=== PATIENT | female | born 1940 | race Caucasian/White ===

== ENCOUNTER 2017-08-21 09:34 | Emergency (ER) | payer MEDICARE, BC ==
[2017-08-21] MEDS ORDERED: methylPREDNISolone Sod Succ/PF 125 MG/2 ML VIAL ONE (10:18)
[2017-08-21] MEDS ORDERED: Ondansetron HCl/PF 4 MG/2 ML Vial ONE (10:18)
[2017-08-21] MEDS ORDERED: Sterile Water 10 ML ONE (10:18)
[2017-08-21] MEDS ORDERED: Morphine 10 MG/ML VIAL ONE ×2 (10:21→12:15)
--- NOTE | 2017-08-21 11:43 | RAD ---
SINGLE VIEW OF THE PELVIS: COMPARISON: None. HISTORY: Low back pain since David. FINDINGS: A single view of the pelvis shows no evidence of acute fracture or dislocation. No degenerative vik nges are seen.. No soft tissue swelling is seen. IMPRESSION: Unremarkable exam. POS: [facility]
--- NOTE | 2017-08-21 11:45 | RAD ---
THREE VIEWS OF TH ELUMBOSACRAL SPINE: COMPARISON: None. HISTORY: Low back pain since Wednesday. FINDINGS: Three views lumbosacral spine show normal height and alignment of the vertebral bodies and intervert ebral disks without fracture or subluxation. Moderate posterior facet arthrosis is seen in the lowe r lumbosacral spine. IMPRESSION: Moderate degenerative changes of the lumbar spine without acute osseous abnormality. POS: [facility]
[2017-08-21] MEDS ORDERED: Lidocaine 5% Patch TD SCH (12:00)
[2017-08-21] MEDS ORDERED: Lidocaine Patch Removal 1 EACH TOP SCH (23:59)
== END 2017-08-21 13:52 | disposition home or self-care (01) ==
LOC: ERS 09:34
DX: M54.5 Low back pain (principal); I10 Essential (primary) hypertension; Z79.899 Other long term (current) drug therapy
CPT/HCPCS: 72100; 72170; 96374; 96375; 96376; A4216; J2270; J2405; J2930

== ENCOUNTER 2017-10-13 08:14 | Outpatient (CLI) | payer MEDICARE, BC ==
[2017-10-13 11:18] LABS: #Eosinphils 0.1 thou/uL (0.0-0.7); #Lymphocytes 1.5 thou/uL (1.20-3.40); #Monocytes 0.7 thou/uL (0.11-0.59); #Neutrophils 4.5 thou/uL (1.40-6.50); %Basophils 0.3 % (0.0-1.0); %Eosinophils 0.9 % (0.0-10.0); %Monocytes 10.6 % (0.0-10.0); %Neutrophils 66.2 % (42.0-75.0); Hemoglobin 14.5 g/dL (12.0-16.0); Mean Corpuscular HGB CONC 33.9 g/dL (32.0-36.0); Mean Corpuscular Hemoglobin 33.1 pg (27.0-31.0); Mean Corpuscular Volume 97.7 fl (81.0-99.0); Mean Platelet Volume 7.4 fL (7.4-10.4); Platelet Count 275 thou/uL (130-400); RBC Distribution Width 11.8 % (11.5-14.5); Red Blood Cell (RBC) Count 4.38 mill/uL (4.20-5.40); White Blood Cell (WBC) Count 6.7 thou/uL (4.8-10.8)
[2017-10-13 11:25] LABS: Anion Gap 12 mmol/L (10-20); BUN (Urea Nitrogen) 11 mg/dL (9.8-20.1); Calc. Creatinine Clearance 0 mL/min (70-130); Calcium 10.7 mg/dL (7.8-10.44); Carbon Dioxide 28 mmol/L (23-31); Chloride 103 mmol/L (98-107); Estimated GFR-MDRD 64; Glucose 96 mg/dL (83-110); Potassium 3.6 mmol/L (3.5-5.1); Sodium 139 mmol/L (136-145)
[2017-10-13 11:41] LABS: PTT 27.2 SEC (22.9-36.1)
--- NOTE | 2017-10-21 19:31 | EKG ---
Test Reason : Blood Pressure : / mmHG Vent. Rate : 083 BPM Atrial Rate : 083 BPM P-R Int : 142 ms QRS Dur : 066 ms QT Int : 348 ms P-R-T Axes : 054 058 032 degrees QTc Int : 408 ms Sinus rhythm with marked sinus arrhythmia Otherwise normal ECG When compared with ECG of 31-MAY-2015 19:58, (Unconfirmed) No significant change was found Confirmed by EJ LUIS (2) on 10/21/2017 7:30:50 PM Referred By: DUDLEY Confirmed By:EJ LUIS
== END 2017-10-13 08:15 | disposition home or self-care (01) ==
LOC: LABBT 08:14
PROVIDERS: ATTEND Surgery
DX: Z01.818 Encounter for other preprocedural examination (principal); M54.16 Radiculopathy, lumbar region; M48.061 Spinal stenosis, lumbar region without neurogenic claudication
CPT/HCPCS: 80048; 85025; 85610; 85730; 93005; 93010

== ENCOUNTER 2017-10-19 09:29 | Day surgery (SDC) | payer MEDICARE, BC ==
[2017-10-13 08:32] VITALS: BMI 33.2
[2017-10-19] MEDS ORDERED: CEFAZOLIN/Water 2 GM/20 ML SYRINGE ONE (10:12)
[2017-10-19] MEDS ORDERED: Sodium Chloride 0.9% 10 ML ONE (12:09)
[2017-10-19] MEDS ORDERED: Thrombin 5000 UNITS/5 ML VIAL ONE (12:09)
[2017-10-19] MEDS ORDERED: Fentanyl 100 MCG/2 ML VIAL ONE ×4 (12:21→16:48)
[2017-10-19] MEDS ORDERED: Midazolam HCl 2 mg/2 ml Vial ONE (12:21)
[2017-10-19] MEDS ORDERED: Promethazine HCl 25 MG/ML VIAL IM PRN (15:19)
[2017-10-19] MEDS ORDERED: Acetaminophen/Codeine 30-300mg Tablet PO PRN (15:19)
[2017-10-19] MEDS ORDERED: Bisacodyl 10 MG SUPP PR PRN (15:19)
[2017-10-19] MEDS ORDERED: Morphine 4 MG/ML VIAL SLOW IVP PRN (15:19)
[2017-10-19] MEDS ORDERED: Acetaminophen 325 MG TAB PO PRN (15:19)
[2017-10-19] MEDS ORDERED: Mag-Al 1200 mg/1200 mg/30 ML UDCUP PO PRN (15:19)
[2017-10-19] MEDS ORDERED: Milk Of Magnesia 30 ML UDCUP PO PRN (15:19)
[2017-10-19] MEDS ORDERED: tiZANidine HCl 4 MG TAB PO PRN (15:19)
[2017-10-19] MEDS ORDERED: Fleet Enema 133 ML BOT PR PRN (15:19)
[2017-10-19] MEDS ORDERED: Ondansetron HCl/PF 4 MG/2 ML Vial IVP PRN (15:19)
[2017-10-19] MEDS ORDERED: Ondansetron HCl/PF 4 MG/2 ML Vial ONE (15:20)
[2017-10-19] MEDS ORDERED: Glycopyrrolate 0.2 MG/ML 5 ML SYRINGE ONE (15:20)
[2017-10-19] MEDS ORDERED: Dexamethasone 20 MG/5 ML VIAL ONE (15:20)
[2017-10-19] MEDS ORDERED: Esmolol 100 MG/10 ML VIAL ONE (15:20)
[2017-10-19] MEDS ORDERED: ePHEDrine/0.9% NaCl/PF SYRINGE 50 mg/10 ml ONE (15:20)
[2017-10-19] MEDS ORDERED: PROPOFOL 200 MG/20 ML VIAL ONE (15:20)
[2017-10-19] MEDS ORDERED: PHENYLEPHRINE-NS 100 MCG/ML 10 ML SYRINGE ONE (15:20)
[2017-10-19] MEDS ORDERED: Lidocaine 1% PF 5 ML VIAL ONE (15:20)
[2017-10-19] MEDS ORDERED: Nebivolol HCl 5 MG TAB PO PRN (15:22)
[2017-10-19] MEDS ORDERED: HYDROmorphone 2 MG/ML VIAL SLOW IVP PRN (15:26)
[2017-10-19] MEDS ORDERED: Morphine Sulfate 2 MG/ML SYRINGE SLOW IVP PRN (15:26)
[2017-10-19] MEDS ORDERED: Meperidine HCl/PF 25 MG/ML VIAL SLOW IVP PRN (15:26)
[2017-10-19] MEDS ORDERED: Promethazine HCl 25 MG/ML VIAL SLOW IVP PRN (15:26)
[2017-10-19] MEDS ORDERED: CEFAZOLIN/Water 2 GM/20 ML SYRINGE SLOW IVP SCH (18:00)
[2017-10-19] MEDS: Sodium Chloride 0.9% 1,000 ML IV SCH (20:00)
[2017-10-19] MEDS: HYDROcodone/Acetaminophen 7.5/325 mg Tablet PO PRN (21:04)
[2017-10-20] MEDS: HYDROcodone/Acetaminophen 7.5/325 mg Tablet PO PRN ×4 (02:00→18:22)
[2017-10-20] MEDS: Sodium Chloride 0.9% 1,000 ML IV SCH ×2 (05:02→18:26)
[2017-10-20] MEDS ORDERED: CEFAZOLIN/Water 2 GM/20 ML SYRINGE SLOW IVP SCH (06:00)
--- NOTE | 2017-10-20 09:15 | PRG ---
DATE OF SERVICE: 10/20/2017 Ms. Farmer is doing well with improvement in her leg pain compared to before surgery. She has good strength. She is mobilizing. She has had some urinary retention. The biggest issue at this point i s we need to work on placement as she lives alone, so I think it would be in the inpatient rehab and we will start to work toward that.
[2017-10-20] MEDS: Polyethylene Glycol 3350 17 GM Packet PO SCH (09:22)
[2017-10-20] MEDS: Hydrocerin (Eucerin) Cream 120 gm Jar TOP SCH (09:24)
--- NOTE | 2017-10-20 10:34 | OP ---
SURGEON: Reno Harp M.D. PLATFORM BUILDER: Flaco Franz PA-C. PREPROCEDURE DIAGNOSIS: Multilevel lumbar stenosis. POSTPROCEDURE DIAGNOSIS: Multilevel lumbar stenosis. PROCEDURE: L2-L3, L3-L4, L4-L5 laminectomies, partial facetectomies, and foraminotomies over the L2, L3, L4, L5 nerve roots bilaterally. DESCRIPTION OF PROCEDURE: After informed consent was obtained from the patient, the patient brought to OR 11. Proper patient pause and identification was carried out. The patient was then placed unde r excellent general endotracheal anesthesia and positioned prone on the operating room table, all syed ropriate points were padded. We identified the dorsal spines of L2, L3, L4, and L5 and linear anthony w as made over this region. This area was sterilely cleansed, prepared, and draped and proper patient pause and identification was carried out. The wound was then opened with a combination of sharp, mon opolar, and blunt dissection and the L2, L3, L4, L5 dorsal spines lamina were exposed. Localization film confirmed our area of interest. We then performed L2, L3, L4, L5 laminectomies, partial facetec tomies, and foraminotomies over the L2, L3, L4, L5 nerve roots. We had excellent decompression of th e common dural tube and the nerve roots. There was no spinal fluid leak. Hemostasis was maximized t hroughout. The wound was then closed in anatomic layers following the sprinkling of vancomycin powde r. The patient then emerged from anesthesia.
[2017-10-21] MEDS: HYDROcodone/Acetaminophen 7.5/325 mg Tablet PO PRN ×2 (04:39→09:47)
[2017-10-21] MEDS: Sodium Chloride 0.9% 1,000 ML IV SCH ×2 (09:41→21:11)
[2017-10-21] MEDS: Hydrocerin (Eucerin) Cream 120 gm Jar TOP SCH (09:47)
[2017-10-21] MEDS: Polyethylene Glycol 3350 17 GM Packet PO SCH (09:47)
--- NOTE | 2017-10-21 14:36 | PRG ---
DATE OF SERVICE: 10/21/2017 SUBJECTIVE: Ms. Farmer is postoperative day #2 from multilevel lumbar decompression. She is doing well with improvement in her leg pain compared preoperatively. She has good strength in lower extrem ity myotomes and is beginning to mobilize. She will be a good inpatient rehabilitation candidate in my opinion and we will move in that direction. Hopefully, she may be dismissed today.
[2017-10-21] MEDS: Acetaminophen 500 MG TAB PO PRN (21:18)
[2017-10-22] MEDS: traMADol HCl 50 MG TAB PO PRN ×3 (02:11→22:08)
[2017-10-22] MEDS: Polyethylene Glycol 3350 17 GM Packet PO SCH (08:41)
[2017-10-22] MEDS: Acetaminophen 500 MG TAB PO PRN ×2 (08:45→15:26)
[2017-10-22] MEDS: Hydrocerin (Eucerin) Cream 120 gm Jar TOP SCH (08:47)
--- NOTE | 2017-10-22 09:14 | PRG ---
DATE OF SERVICE: 10/22/2017 Ms. Farmer is now postoperative day #3, having undergone an L2-L5 laminectomy with Dr. Harp. The patient states she is feeling much better today. She is currently walking with a walker and is more upright and steady on her feet compared to even yesterday. She does note that her incision has been itching. I have suggested ice for this. Right now we are waiting on placement for the patient. Hop efully today she will be accepted into a alf facility versus inpatient rehab, whatever martha keane has been approved for. She is stable for discharge at this time as she has been voiding spontaneou sly, ambulating. Pain is controlled with oral medications and she is tolerating a solid diet. Donnie e call with any questions or changes in the patient's neurologic status. Otherwise, she is stable fo r discharge at any time.
[2017-10-22] MEDS: Sodium Chloride 0.9% 1,000 ML IV SCH (15:28)
[2017-10-23] MEDS: Sodium Chloride 0.9% 1,000 ML IV SCH ×2 (07:09→13:02)
--- NOTE | 2017-10-23 08:24 | PRG ---
DATE OF SERVICE: 10/23/2017 Ms. Farmer is a 77-year-old female who I saw in her room this morning. She is status post from a L2 -L5 laminectomies. She is currently waiting for rehab to be accepted for rehab. Rehab screening rory l hopefully be done today and consideration for rehab placement. She has good strength in her upper and lower extremities bilaterally. There are no paresthesias. She had no bowel or bladder incontine nce. Overnight, there have been no acute events. She has been slightly hypertensive at 148/66, slig htly tachycardic at 109. However, she is afebrile and her respiratory rate is 18. Her incision is c lean, dry, and intact and I encouraged her to get up and walk as much as possible. We will look to d ischarge her to rehab today. If there are any further questions, please feel free to consult Neurosurgery.
[2017-10-23] MEDS: Hydrocerin (Eucerin) Cream 120 gm Jar TOP SCH (08:55)
[2017-10-23] MEDS: Polyethylene Glycol 3350 17 GM Packet PO SCH (08:55)
--- NOTE | 2017-10-23 10:01 | PRG ---
DATE OF SERVICE: 10/23/2017 I saw Ms. Farmer in her hospital room this morning. She is awaiting a bed in inpatient rehab facili . She underwent decompressive laminectomy with Dr. Harp this week and notices already a signific ant difference in her lower extremities. She feels she is moving around better today than yesterday and even her back pain is improving. We are waiting for inpatient rehabilitation admission and if a bed is available today she can be discharged.
[2017-10-23 13:23] VITALS: BP 123/59; TEMP 99
--- NOTE | 2017-11-10 10:09 | DIS ---
DATE OF ADMISSION: 10/19/2017 DATE OF DISCHARGE: 10/23/2017 DISCHARGE DIAGNOSES: 1. Multilevel lumbar stenosis. 2. Low back pain with lumbar radiculopathy. HOSPITAL COURSE: Ms. Farmer was admitted on 10/19/2017 to undergo multilevel lumbar laminectomy wit Dr. Harp. The patient tolerated the procedure well and it was without complication. She was lat er sent to the pediatric floor to recover and her insurance required 3 overnight stays in order for er to be accepted into inpatient rehab facility at discharge. At time of discharge, the patient is c omplaining of some incisional back pain, but otherwise had improvement in her leg pain and stated domenico t she was walking better at discharge. She remained neurologically at baseline with good strength in the bilateral lower extremities, although was using a walker for gait stability. Appropriate outpat ient followup appointments were scheduled and patient education was provided. At the time of dischar ge, the patient was pleased with her outcome postoperatively and was doing well.
== END 2017-10-23 19:34 ==
LOC: SDC 09:29 → 3SE 15:19 → SDC 10-23 19:34
PROVIDERS: ATTEND Surgery
PROC: 00NY0ZZ Release Lumbar Spinal Cord, Open Approach (ICD-10-PCS; principal; 2017-10-19)
DX: M48.061 Spinal stenosis, lumbar region without neurogenic claudication (principal); M54.16 Radiculopathy, lumbar region; Z98.1 Arthrodesis status; Z91.040 Latex allergy status; Z91.048 Other nonmedicinal substance allergy status; Z88.8 Allergy status to other drugs, medicaments and biological substances; Z90.710 Acquired absence of both cervix and uterus; Z90.722 Acquired absence of ovaries, bilateral; Z98.890 Other specified postprocedural states
CPT/HCPCS: 63047; 63048 ×3; 76001; 97110; 97116 ×2; 97139 ×2; 97530 ×2; 97535; G8978; G8979; G8987; G8988; A4216; J1100; J2001; J2250; J2405; J2704; J3010; J3370; J3490

== ENCOUNTER 2018-01-25 12:05 | Emergency (ER) | payer MEDICARE, BC ==
[2018-01-25 13:01] LABS: #Basophils 0.1 thou/uL (0.0-0.2); #Eosinphils 0.1 thou/uL (0.0-0.7); #Lymphocytes 1.6 thou/uL (1.20-3.40); #Monocytes 0.7 thou/uL (0.11-0.59); #Neutrophils 4.5 thou/uL (1.40-6.50); %Basophils 0.8 % (0.0-1.0); %Eosinophils 0.9 % (0.0-10.0); %Lymphocytes 23.1 % (21.0-51.0); %Monocytes 9.7 % (0.0-10.0); %Neutrophils 65.4 % (42.0-75.0); Hemoglobin 14.9 g/dL (12.0-16.0); Mean Corpuscular HGB CONC 33.6 g/dL (32.0-36.0); Mean Corpuscular Hemoglobin 32.2 pg (27.0-31.0); Mean Corpuscular Volume 95.9 fl (81.0-99.0); Mean Platelet Volume 7.4 fL (7.4-10.4); Platelet Count 276 thou/uL (130-400); RBC Distribution Width 11.3 % (11.5-14.5); Red Blood Cell (RBC) Count 4.63 mill/uL (4.20-5.40); White Blood Cell (WBC) Count 6.9 thou/uL (4.8-10.8)
[2018-01-25 13:08] LABS: INR-International Normal Ratio 0.9; PTT 25.2 SEC (22.9-36.1); Prothrombin Time 12.7 SEC (12.0-14.7)
[2018-01-25 13:17] LABS: ALT (SGPT) 12 U/L (8-55); AST (SGOT) 16 U/L (5-34); Albumin 4.1 g/dL (3.4-4.8); Alkaline Phosphatase 97 U/L (40-150); Anion Gap 11 mmol/L (10-20); BUN (Urea Nitrogen) 21 mg/dL (9.8-20.1); Bilirubin, Total 0.4 mg/dL (0.2-1.2); Calc. Creatinine Clearance 0 mL/min (70-130); Calcium 10.4 mg/dL (7.8-10.44); Carbon Dioxide 27 mmol/L (23-31); Chloride 104 mmol/L (98-107); Estimated GFR-MDRD 61; Globulin 2.7 g/dL (2.4-3.5); Glucose 93 mg/dL (83-110); Potassium 4.4 mmol/L (3.5-5.1); Protein, Total 6.8 g/dL (6.0-8.3); Sodium 138 mmol/L (136-145)
== END 2018-01-25 17:06 | disposition home or self-care (01) ==
LOC: ERS 12:05
DX: K64.4 Residual hemorrhoidal skin tags (principal); Z79.899 Other long term (current) drug therapy; Z79.891 Long term (current) use of opiate analgesic
CPT/HCPCS: 36415; 80053; 82274; 85025; 85610; 85730; 86850; 86900; 86901; 99284

== ENCOUNTER 2018-02-02 09:45 | Outpatient (CLI) | payer MEDICARE, BC ==
[2018-02-02] MEDS ORDERED: ISOVUE-370 76%-LOCM 1 ML ONE (15:03)
== END 2018-02-02 09:46 | disposition home or self-care (01) ==
LOC: BICCT 09:45
PROVIDERS: ATTEND Internal Medicine Gastroenterology
DX: E83.119 Hemochromatosis, unspecified (principal); R93.3 Abnormal findings on diagnostic imaging of other parts of digestive tract; K92.2 Gastrointestinal hemorrhage, unspecified
CPT/HCPCS: 74177

== ENCOUNTER 2018-07-26 11:30 | Observation (INO) | payer MEDICARE, BC ==
[2018-07-26 12:22] LABS: #Basophils 0.1 thou/uL (0.0-0.2); #Eosinphils 0.1 thou/uL (0.0-0.7); #Lymphocytes 1.2 thou/uL (1.20-3.40); #Monocytes 0.5 thou/uL (0.11-0.59); #Neutrophils 6.1 thou/uL (1.40-6.50); %Basophils 0.7 % (0.0-1.0); %Eosinophils 1.1 % (0.0-10.0); %Lymphocytes 14.7 % (21.0-51.0); %Neutrophils 77.5 % (42.0-75.0); Hemoglobin 12.4 g/dL (12.0-16.0); Mean Corpuscular HGB CONC 32.1 g/dL (32.0-36.0); Mean Corpuscular Hemoglobin 31.7 pg (27.0-31.0); Mean Corpuscular Volume 98.8 fL (78.0-98.0); Mean Platelet Volume 7.7 fL (7.4-10.4); Platelet Count 188 thou/uL (130-400); RBC Distribution Width 12.2 % (11.5-14.5); Red Blood Cell (RBC) Count 3.91 mill/uL (4.20-5.40); White Blood Cell (WBC) Count 7.8 thou/uL (4.8-10.8)
[2018-07-26 12:47] LABS: ALT (SGPT) 10 U/L (8-55); AST (SGOT) 14 U/L (5-34); Albumin 3.3 g/dL (3.4-4.8); Alkaline Phosphatase 73 U/L (40-150); Anion Gap 13 mmol/L (10-20); BUN (Urea Nitrogen) 14 mg/dL (9.8-20.1); Bilirubin, Total 0.4 mg/dL (0.2-1.2); Calc. Creatinine Clearance 0 mL/min (70-130); Calcium 8.8 mg/dL (7.8-10.44); Carbon Dioxide 21 mmol/L (23-31); Chloride 107 mmol/L (98-107); Estimated GFR-MDRD 47; Globulin 2.3 g/dL (2.4-3.5); Glucose 208 mg/dL (83-110); Potassium 3.9 mmol/L (3.5-5.1); Protein, Total 5.6 g/dL (6.0-8.3); Sodium 137 mmol/L (136-145)
--- NOTE | 2018-07-26 12:47 | RAD ---
ONE VIEW CHEST: Comparison: 05-31-15 History: Syncope. FINDINGS: Normal cardiac silhouette. The pulmonary vessels and hilum are normal. Costophrenic angles are clear. Elevation of the right hemidiaphragm. No consolidation or mass. No pneumothorax or osseous abnormali ty. IMPRESSION: Elevation right hemidiaphragm which may be due to atelectasis. Elevation of the right hemidiaphragm c orresponds to CT from January 2018. If there is concern for diaphragmatic paralysis, consider non-emerg ent Sniff Test. POS: [facility]
[2018-07-26 12:50] LABS: CKMB 0.9 ng/mL (0-6.6); Troponin I Less than 0.010 ng/mL (< 0.028)
[2018-07-26 13:56] LABS: Hemoglobin A1c 5.3 % (4.0-6.0)
[2018-07-26] MEDS ORDERED: Acetaminophen 325 MG TAB PO PRN (14:25)
[2018-07-26] MEDS ORDERED: Ondansetron ODT 4 MG TAB PO PRN (14:25)
[2018-07-26] MEDS ORDERED: Calcium Carbonate 500 MG ChewTAB PO PRN (14:25)
[2018-07-26] MEDS ORDERED: Nitroglycerin 0.4 MG TAB (25 Tab Bottle) PO PRN (14:25)
[2018-07-26] MEDS ORDERED: Ondansetron HCl/PF 4 MG/2 ML Vial IVP PRN (14:25)
--- NOTE | 2018-07-26 14:37 | HP ---
DATE OF ADMISSION: 07/26/2018 PRIMARY CARE PHYSICIAN: Mary Vargas M.D. CHIEF COMPLAINT: Near syncopal episode. HISTORY OF PRESENT ILLNESS: The patient is an 78-year-old white female with hemochromatosis requirin g phlebotomy, presented to the emergency room with a near syncopal episode. The patient underwent phlebotomy this morning. After that, she was at [facility]. While she was eating, s he had a near syncopal episode. She denies any loss of consciousness. She was pale and diaphoretic at that time. She denies any chest pain, palpitations, double vision, blurring of vision, facial asy mmetry or weakness, numbness of any of her extremities. No seizures reported. No complete loss of c onsciousness. Her blood pressure per EMS was 81/40. She was unable to lift her head from the table per EMS. She received IV fluids by the EMS. Her blood pressure in the emergency room was 100/56 wit h temperature 98.1, respirations 12, pulse rate of 87, O2 saturation of 100% on room air. Her EKG sh owed sinus rhythm without significant ST-T wave changes. Her troponin was negative. Her creatinine was slightly elevated at 1.11 from 0.98. PAST MEDICAL HISTORY: 1. History of hypertension. She only takes Bystolic on an as needed basis. 2. Hemochromatosis followed by Dr. Long. She was scheduled for 3 phlebotomy sessions. Today was he r second one. 3. Chronic constipation. 4. Gastroesophageal reflux disease. 5. Degenerative joint disease. 6. History of gastrointestinal bleeding. 7. Benign essential tremors. 8. History of breast cancer. 9. Atopic dermatitis. 10. Recurrent gastrointestinal bleed. PAST SURGICAL HISTORY: 1. Right lumpectomy. 2. Hysterectomy. 3. Colonoscopy in 2011 that was normal. 4. Left ear surgery. 5. Stress test and cardiac catheterization in 2011. Report unavailable. 6. I and D of her skin cyst on the back in 2012. ALLERGIES: The patient is allergic to LATEX, RAMIPRIL and ADHESIVES. CURRENT HOME MEDICATIONS: The patient takes Protonix 40 mg daily, Benadryl as needed, MiraLax daily, Bystolic 5 mg only if her blood pressure is more than systolic 180s. SOCIAL HISTORY: The patient currently lives at home. Denies current use of smoking, alcohol or drug use. She is active at the local [facility]. She is . She makes her own decision with th e help of her family. FAMILY HISTORY: Father with lung cancer. Mother had heart problems. Heart disease runs in her fami ly. REVIEW OF SYSTEMS: The following complete review of systems was negative, unless otherwise mentioned in the HPI or below: Constitutional: Weight loss or gain, ability to conduct usual activities. Sk in: Rash, itching. Eyes: Double vision, pain. ENT/Mouth: Nose bleeding, neck stiffness, pain, te nderness. Cardiovascular: Palpitations, dyspnea on exertion, orthopnea. Respiratory: Shortness of breath, wheezing, cough, hemoptysis, fever or night sweats. Gastrointestinal: Poor appetite, abdom inal pain, heartburn, nausea, vomiting, constipation, or diarrhea. Genitourinary: Urgency, frequenc y, dysuria, nocturia. Musculoskeletal: Pain, swelling. Neurologic/Psychiatric: Anxiety, depressio n. Allergy/Immunologic: Skin rash, bleeding tendency. PHYSICAL EXAMINATION: VITAL SIGNS: As discussed above. GENERAL: An 78-year-old female, in no apparent distress, feels better with IV fluids. HEENT: Head atraumatic, normocephalic. Sclerae are anicteric. Moist mucous membrane. No oral lesi on. NECK: Supple, no JVD, no carotid bruit. LUNGS: Clear to auscultation bilaterally. HEART: S1, S2 present. Regular rate and rhythm. No significant murmur, heaves or pulsation noted. ABDOMEN: Soft, nontender. Bowel sounds present. EXTREMITIES: No edema or calf tenderness. NEUROLOGIC: Grossly nonfocal. Moves all four extremities. PSYCHIATRY: Alert, awake, oriented x3. SKIN: Warm and dry. LYMPH NODES: No palpable lymph nodes in the neck. PERIPHERAL VASCULAR: Radial pulses palpable bilaterally. MUSCULOSKELETAL: No joint swelling or tenderness. LABORATORY FINDINGS: Creatinine 1.11 with BUN 14. Hemoglobin A1c 5.3 with glucose of 208, albumin 3 .3. LFTs in normal range. Sodium 137, potassium 3.9. WBC 7.8 with hemoglobin 12.4, hematocrit 38.6, platelets of 188,000. Troponin was negative. JMAGING: EKG by my review as discussed above. Chest x-ray by my review was negative for infiltrate. It showed chronic elevation of the right diaphragm. IMPRESSION: 1. Near syncopal episode, probably vasovagal versus dehydration. 2. Chronic kidney disease stage 3 with slight worsening of the creatinine. 3. Hyperglycemia secondary to stress. Hemoglobin A1c is normal. 4. Mild protein calorie malnutrition. 5. Chronic hemochromatosis on phlebotomy. 6. Gastroesophageal reflux disease. 7. Hypertension on p.r.n. Bystolic. 8. History of recurrent gastrointestinal bleed. PLAN: The patient will be monitored on the telemetry unit. We will obtain serial troponins. We rory l repeat orthostatic vitals in a.m. We will resume her home medications. We will continue IV fluids . We will try to obtain echocardiogram and catheterization report from 2011. Plan of care was discussed with the patient in detail. She stated understanding.
[2018-07-26 14:49] LABS: Phosphorus 3.1 mg/dL (2.3-4.7)
[2018-07-26 15:44] LABS: Troponin I Less than 0.010 ng/mL (< 0.028)
[2018-07-26] MEDS ORDERED: Prevnar 13-Val Conj/PF 0.5 ML SYRINGE IM ONE (15:45)
[2018-07-26] MEDS: Sodium Chloride 0.9% 1,000 ML IV SCH ×2 (15:46→23:50)
[2018-07-26 19:41] LABS: Troponin I Less than 0.010 ng/mL (< 0.028)
[2018-07-26 20:34] LABS: Bilirubin Negative (Negative); Blood, Urine Negative (Negative); Clarity CLEAR (Clear); Glucose, Urine (Dipstick) 100 mg/dL (Negative); Leukocyte Negative (Negative); Nitrite Negative (Negative); Protein, Urine (Dipstick) Negative (Neg-Trace); Specific Gravity, Urine 1.009 (1.002-1.036); Urobilinogen 0.2 mg/dL (0.2-1.0); pH, Urine 6.5 (5.0-9.0)
[2018-07-26 20:37] LABS: Bacteria/HPF None Seen HPF (None Seen); Hyaline Casts/LPF 0-3 HYALINE CAST LPF (0-3 Hyaline); Pathc Cast-AUWi Flag 0.29 (0-2.49); RBC/HPF 0-3 HPF (0-3); Squamous Epithelial 0-3 HPF (0-3); WBC/HPF 0-3 HPF (0-3)
[2018-07-26 20:38] LABS: Renal Epithelial None Seen HPF (0-3); Transitional Epithelial NONE SEEN HPF (0-3)
[2018-07-27 05:01] LABS: Anion Gap 9 mmol/L (10-20); BUN (Urea Nitrogen) 11 mg/dL (9.8-20.1); Calc. Creatinine Clearance 67 mL/min (70-130); Calcium 8.7 mg/dL (7.8-10.44); Carbon Dioxide 24 mmol/L (23-31); Chloride 112 mmol/L (98-107); Estimated GFR-MDRD 69; Glucose 103 mg/dL (83-110); Potassium 3.8 mmol/L (3.5-5.1); Sodium 141 mmol/L (136-145)
[2018-07-27] MEDS: Sodium Chloride 0.9% 1,000 ML IV SCH (10:35)
[2018-07-27 10:50] VITALS: BMI 33.8
[2018-07-27 12:46] VITALS: BP 144/75; TEMP 98.8
--- NOTE | 2018-07-28 10:31 | DIS ---
DATE OF DISCHARGE: 07/27/2018 DISCHARGE DISPOSITION: Home. FOLLOWUP: Follow up with primary care physician Mary Vargas in 1 week. Fall precaution was emphasized. The patient was advised to monitor her blood pressure on a daily basis and to maintain a log. The patient was seen and examined on the day of discharge. Denies any new complaints. No chest pain , shortness of breath, palpitations reported. BRIEF HOSPITAL COURSE: The patient is an 78-year-old white female with hemochromatosis requiring phl ebotomy presented to the emergency room with a near syncopal episode. Please refer to the history an d physical for further details. The patient was admitted to the hospital with a diagnosis of near syncopal episode, probably vasovaga l following phlebotomy session. She improved with IV fluids. Orthostatic vital this morning remain negative. Creatinine on the day of discharge is 0.8 from 1.11. Troponins remain negative. Telemetr y monitoring did not reveal significant arrhythmias. All the electrolytes including potassium, magne sium, and phosphorus remained normal. Plan of care was discussed with the patient in detail. She stated understanding. FINAL DIAGNOSES: 1. Near syncopal episode, probably vasovagal versus secondary to dehydration. 2. Acute kidney injury on chronic kidney disease stage 3, improved. 3. Mild protein calorie malnutrition. 4. Chronic hemochromatosis on phlebotomy per Gastroenterology, Dr. Long. 5. Gastroesophageal reflux disease. 6. Hypertension on p.r.n. Bystolic. 7. Hyperglycemia on admission, probably stress induced. Hemoglobin A1c was 5.3. 8. History of recurrent gastrointestinal bleed. Plan of care was discussed with the patient in detail. She stated understanding.
== END 2018-07-27 13:23 | disposition home or self-care (01) ==
LOC: ERS 11:30 → 2NO 14:55
PROVIDERS: ADMIT Internal Medicine; ATTEND Internal Medicine
DX: R55 Syncope and collapse (principal); E83.119 Hemochromatosis, unspecified; I12.9 Hypertensive chronic kidney disease with stage 1 through stage 4 chronic kidney disease, or unspecified chronic kidney disease; N18.3 Chronic kidney disease, stage 3 (moderate); N17.9 Acute kidney failure, unspecified; K59.09 Other constipation; K21.9 Gastro-esophageal reflux disease without esophagitis; M19.90 Unspecified osteoarthritis, unspecified site; G25.0 Essential tremor; R73.9 Hyperglycemia, unspecified; E44.1 Mild protein-calorie malnutrition; Z68.33 Body mass index [BMI] 33.0-33.9, adult; Z79.899 Other long term (current) drug therapy; Z88.8 Allergy status to other drugs, medicaments and biological substances; Z91.040 Latex allergy status; Z91.048 Other nonmedicinal substance allergy status
CPT/HCPCS: 71045; 80048; 80053; 81001; 82553; 83036; 83735; 84100; 84484 ×2; 85025; 86850; 86900; 86901; 93005; 94760 ×3; 96360; 96361 ×3; 97139; 99285; G0378 ×2; 36415

== ENCOUNTER 2019-04-18 07:55 | Outpatient (CLI) | payer MEDICARE, BC ==
--- NOTE | 2019-04-18 09:46 | CT ---
CT ABDOMEN AND PELVIS WITH CONTRAST: CLINICAL HISTORY: Hemochromatosis with abnormal findings in the GI tract. COMPARISON: 12/18/2015 FINDINGS: Previous hyperdense, partially calcified mass of the ventral low abdomen is redemonstrated, although it is in a more right lateral location than on previous exam, indicating mobility, along with structu res of the mesentery. The diameter of this mass, in axial dimensions, is 2.8 x 2.5 cm, grossly stabl e. There is no evidence of a focal hepatic or splenic lesion. 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 No evidence of adrenal mass or suspicious renal lesion. The pancreas is unremarkable. Scattered vascular calcification is prese nt. There are granulomatous calcifications at the imaged lower chest. Scattered osseous degenerativ e change is present. IMPRESSION: 1. Redemonstration of partially calcified soft tissue mass of the low abdomen, which demonstrates a more right lateral location than on prior examination, indicating mobility, along with the structures of the mesentery. 2. Previously mentioned lymph nodes are again seen within the mesentery. These are not pathological ly enlarged by size criteria, although remain similar in number. POS: [facility]
[2019-04-18] MEDS ORDERED: ISOVUE-370 76%-LOCM 1 ML ONE (10:34)
== END 2019-04-18 07:56 | disposition home or self-care (01) ==
LOC: BICCT 07:55
PROVIDERS: ATTEND Internal Medicine Gastroenterology
DX: E83.119 Hemochromatosis, unspecified (principal); R93.3 Abnormal findings on diagnostic imaging of other parts of digestive tract; R19.00 Intra-abdominal and pelvic swelling, mass and lump, unspecified site
CPT/HCPCS: 74177; 82565; Q9966

== ENCOUNTER 2019-07-17 10:07 | Outpatient (CLI) | payer MEDICARE, BC ==
--- NOTE | 2019-07-17 11:25 | CT ---
CT ABDOMEN WITH IV CONTRAST 07/17/2019 CLINICAL INFORMATION: Hemachromatosis. Abnormal findings on exam of GI tract. Calcified small bowel mass. COMPARISON: 04/18/2019 and 02/02/2018 Technique: Multiple contiguous axial CT images are obtained through the abdomen and pelvis with IV contrast. Cor onal reformatted images are provided. FINDINGS: Lower Chest: Few calcified granulomata are seen at the right lung base with minimal atelectasis right lung base. Calcified posterior mediastinal lymph node is present. Vessels: Vascular calcifications are seen in the abdominal aorta. Abdomen: Portal vein:Patent Gallbladder: Punctate increased density focus is seen in the gallbladder along the dependent wall of the gallbladder stable compared to prior studies and this could represent a tiny gallbladder polyp. Liver: within normal limits. Spleen: within normal limits. There is a rounded calcification seen at the lower portion of the splen ic hilum which may represent a partially calcified tortuous splenic artery or possibly a calcified splenic artery aneurysm. This is stable compared to prior exams and measures 8 mm. Pancreas: within normal limits. Adrenals: within normal limits. Kidneys: Tiny subcentimeter too small to characterize hypodense lesion is again seen at the superior pole right kidney. Kidneys otherwise have a normal CT appearance bilaterally. Bowel: Normal caliber. Appendix: Not visualized, there are no CT findings to suggest appendicitis. Peritoneum and retroperitoneum: As noted on the prior studies, there is a circumscribed partially eliazar cified hyperdense mass within the mesentery right lower quadrant/upper pelvis measuring 2.8 cm in maximal dimensions and unchanged in size compared to the prior studies. Abdominal Wall: within normal limits. Bones: Degenerative changes are seen in the spine. Postsurgical changes lower lumbar spine are again noted. IMPRESSION: 1. Stable partially calcified hyperdense mass in the right lower quadrant mesentery unchanged in size or appearance compared to the prior studies. This mass was also seen on a prior study in 2015 and was more medially located suggesting mobility of the mass. 2. No enlarged lymph nodes are seen by CT size criteria. CT abdomen is otherwise stable when compared to prior study.
[2019-07-17] MEDS ORDERED: ISOVUE-370 76%-LOCM 1 ML ONE (13:43)
== END 2019-07-17 10:08 | disposition home or self-care (01) ==
LOC: BICCT 10:07
PROVIDERS: ATTEND Internal Medicine Gastroenterology
DX: E83.119 Hemochromatosis, unspecified (principal); R93.3 Abnormal findings on diagnostic imaging of other parts of digestive tract; K59.00 Constipation, unspecified; R19.03 Right lower quadrant abdominal swelling, mass and lump
CPT/HCPCS: 74160; 82565; Q9966

== ENCOUNTER 2020-07-11 07:43 | Outpatient (CLI) | payer MEDICARE, BC, OTHER ==
[2020-07-11 16:16] LABS: #Eosinphils 0.1 thou/uL (0.0-0.7); #Lymphocytes 1.9 thou/uL (1.20-3.40); #Monocytes 0.6 thou/uL (0.11-0.59); #Neutrophils 3.5 thou/uL (1.40-6.50); %Basophils 0.8 % (0.0-1.0); %Eosinophils 1.4 % (0.0-10.0); %Lymphocytes 30.7 % (21.0-51.0); %Monocytes 9.8 % (0.0-10.0); %Neutrophils 57.3 % (42.0-75.0); Hemoglobin 14.1 g/dL (12.0-16.0); Mean Corpuscular HGB CONC 33.9 g/dL (32.0-36.0); Mean Corpuscular Hemoglobin 33.2 pg (27.0-31.0); Mean Corpuscular Volume 97.7 fL (78.0-98.0); Mean Platelet Volume 8.2 fL (7.4-10.4); Platelet Count 285 thou/uL (130-400); Red Blood Cell (RBC) Count 4.25 mill/uL (4.20-5.40); White Blood Cell (WBC) Count 6.2 thou/uL (4.8-10.8)
[2020-07-11 16:37] LABS: Chloride 107 mmol/L (98-107); Potassium 4.8 mmol/L (3.5-5.1); Sodium 144 mmol/L (136-145)
[2020-07-11 16:38] LABS: Calcium 10.2 mg/dL (7.8-10.44); Glucose 94 mg/dL (83-110)
[2020-07-11 16:39] LABS: Carbon Dioxide 26 mmol/L (23-31)
[2020-07-11 16:40] LABS: Anion Gap 16 mmol/L (10-20)
[2020-07-11 16:41] LABS: Calc. Creatinine Clearance 0 mL/min (70-130); Estimated GFR-MDRD 51
[2020-07-11 16:42] LABS: BUN (Urea Nitrogen) 14 mg/dL (9.8-20.1)
[2020-07-12 11:17] LABS: SARS-CoV-2 MS2 Positive; SARS-CoV-2 N Gene Negative; SARS-CoV-2 S Gene Negative; SARS-CoV-2 by NAA Not Detected (NotDetected); SARS-CoV-2 orf1ab Negative
== END 2020-07-11 07:44 | disposition home or self-care (01) ==
LOC: LABBT 07:43
PROVIDERS: ATTEND Specialist
DX: Z01.818 Encounter for other preprocedural examination (principal); Z20.828 Contact with and (suspected) exposure to other viral communicable diseases; K63.89 Other specified diseases of intestine
CPT/HCPCS: 80048; 85025; 93005; U0003; 87635; 93010

== ENCOUNTER 2020-07-11 14:00 | Inpatient (IN) | payer MEDICARE, BC ==
[2020-07-11 14:41] VITALS: BMI 31.2
[2020-07-16] MEDS ORDERED: Ketorolac Tromethamine 30 MG/ML VIAL ONE (06:18)
[2020-07-16] MEDS ORDERED: Acetaminophen 500 MG TAB ONE (06:18)
[2020-07-16] MEDS ORDERED: cefOXitin Sodium/Dextrose 2 GM/50 ML BAG ONE (06:18)
[2020-07-16] MEDS ORDERED: Midazolam HCl 2 mg/2 ml Vial ONE ×2 (06:46→07:15)
[2020-07-16] MEDS ORDERED: Fentanyl 100 MCG/2 ML VIAL ONE ×3 (06:47→11:06)
[2020-07-16] MEDS ORDERED: Lidocaine 1% w/Epinephrine 1:100K 20 ML VIAL ONE (06:52)
[2020-07-16] MEDS ORDERED: Bupivacaine/Epinephrine 0.25% 30 ML VIAL ONE (06:52)
--- NOTE | 2020-07-16 08:05 | RAD ---
RADIOGRAPH CHEST 1 VIEW: DATE: 07/16/2020 HISTORY: 80-year-old female for preoperative clearance FINDINGS: There are no airspace densities, pulmonary edema, pneumothorax, or cardiomegaly. The lateral costophr enic angles are sharp. Elevated right hemidiaphragm. No interval change since 07/26/2018. IMPRESSION: 1. No acute cardiopulmonary findings. 2. Chronically elevated right hemidiaphragm: Evidence for right phrenic nerve palsy
[2020-07-16] MEDS ORDERED: SUGAMMADEX SODIUM 200 MG/2 ML VIAL ONE (09:19)
[2020-07-16] MEDS ORDERED: Promethazine HCl 25 MG/ML VIAL IM PRN ×2 (09:31→12:02)
[2020-07-16] MEDS ORDERED: Promethazine HCl 25 MG/ML VIAL SLOW IVP PRN (09:31)
[2020-07-16] MEDS ORDERED: Ondansetron HCl/PF 4 MG/2 ML Vial IVP PRN (09:31)
[2020-07-16] MEDS ORDERED: Ondansetron PF 4 MG/2 ML Vial IVP PRN (12:02)
[2020-07-16] MEDS ORDERED: Morphine 2 MG/ML VIAL SLOW IVP PRN (12:02)
[2020-07-16] MEDS ORDERED: Morphine 4 MG/ML VIAL SLOW IVP PRN (12:02)
[2020-07-16] MEDS ORDERED: hydrALAZINE 20 MG/ML VIAL SLOW IVP PRN (12:02)
[2020-07-16] MEDS: Ketorolac Tromethamine 30 MG/ML VIAL IVP SCH ×2 (12:45→17:06)
[2020-07-16] MEDS: D5 1/2 NS w/20 mEq KCL 1,000 ML IV SCH ×2 (12:45→21:38)
[2020-07-16] MEDS ORDERED: PROPOFOL 200 MG/20 ML VIAL ONE (14:01)
[2020-07-16] MEDS ORDERED: Dexamethasone 20 MG/5 ML VIAL ONE (14:01)
[2020-07-16] MEDS ORDERED: Rocuronium Bromide 10 MG/ML (10ML VIAL) ONE (14:01)
[2020-07-16] MEDS ORDERED: Lidocaine 1% PF 5 ML VIAL ONE (14:01)
[2020-07-16] MEDS ORDERED: Bupivacaine HCl 0.5%/Epinephrine 1:200,000/PF 30 ml Vial ONE (14:01)
[2020-07-16] MEDS: Famotidine 20 MG TAB PO SCH (17:06)
[2020-07-16] MEDS: Enoxaparin Sodium 40 MG/0.4 ML SYRINGE SC SCH (20:14)
[2020-07-16] MEDS ORDERED: Famotidine/PF 20 mg/2ml Vial SLOW IVP SCH (21:00)
[2020-07-17] MEDS: Ketorolac Tromethamine 30 MG/ML VIAL IVP SCH ×5 (00:10→23:16)
--- NOTE | 2020-07-17 02:24 | OP ---
DATE OF PROCEDURE: 07/16/2020 PREOPERATIVE DIAGNOSES: Small-bowel tumor, history of recurrent gastrointestinal bleeds. POSTOPERATIVE DIAGNOSES: Small-bowel tumor, history of recurrent gastrointestinal bleeds. PROCEDURE PERFORMED: Laparoscopic assisted small bowel resection. ANESTHESIA: General endotracheal. LOUVER MORTISER OPERATOR: Young Galicia, medical student. INDICATIONS FOR PROCEDURE: The patient is an 80-year-old white female with over 20-year history of intermittent problems with GI bleeds. She has had extensive evaluation with upper and lower endoscopies as well as capsule endoscopies. CT scan shows a persistent 3 cm mass attached to the small bowel. 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 I suspect that this is the most likely etiology for the intermittent GI bleeding that she has experienced and I have recommended laparoscopic-assisted . DESCRIPTION OF OPERATION: Informed consent was obtained. The patient was taken to the operating room, where general endotracheal anesthesia was obtained with the patient in supine position. Abdomen was prepped with ChloraPrep and draped in sterile fashion. Local anesthetic was infiltrated using 0.25% Marcaine with epinephrine. A 5 mm left lateral incision was created and Veress needle was passed through this incision into the peritoneal cavity. Pneumoperitoneum was established using carbon dioxide up to a pressure of 15 mmHg. A 5 mm trocar port site was passed through the same incision. Laparoscopic camera was passed through this port. Under direct vision, 2 additional 5 mm ports were placed, 1 in the left lower quadrant, 1 in left upper quadrant. Attention was turned to the anterior abdominal wall. There were fairly dense omental adhesions extending from the umbilicus inferiorly. These were all taken down with LigaSure. Following this mobilization, I was able to reflect the omentum . The pelvis was inspected. There were no significant lesions within the pelvis. She had undergone prior hysterectomy (which was the cause of the anterior abdominal wall adhesions). When I reflected the omentum, I immediately visualized the tumor. I decided to run the small bowel from the ileocecal valve retrograde to the ligament of Treitz. This segment of the tumor was approximately the mid to proximal jejunum. There were no adhesions to this or any other segment of small bowel. I inspected the liver and the stomach without findings of abnormality. I grasped the mesentery of the segment of small bowel immediately adjacent to the tumor. I created a 4 mm supraumbilical midline incision. Dissection was carried through skin and subcutaneous tissue down to the fascia, which was opened, given access into the abdominal cavity. A small Migue wound retractor was placed. Through this, I grasped the segment of small bowel that had been identified previously. The exophytic/partially pedunculated tumor was easily visualized, grasped, and mobilized externally. I noted that there was no evidence of visible or palpable lymphadenopathy. The small bowel proximal and distal to this were entirely unremarkable. I created a double stapled anastomosis of the BETI 75 stapler between the small bowel distal, removing approximately a 10 cm segment of small bowel. The mesentery between these two areas was taken down using LigaSure device. Specimen was passed off the field. The anastomosis was buttressed with interrupted sutures of 3-0 silk and the mesenteric defect was closed using running suture of 3-0 Vicryl. The anastomosis was widely patent and entirely viable. The segment of bowel was dropped back down to the abdominal cavity. All ports and instruments were removed under direct vision. Pneumoperitoneum was carefully evacuated. 0.25% Marcaine with epinephrine was infiltrated to each port site. The extraction site was closed in layers with 3-0 and 4-0 Monocryl and other sites closed with 4-0 Monocryl subcuticular. Dermabond was placed externally. There were no complications. The patient tolerated the procedure well and was taken to recovery room in stable condition. Job ID: [id number]
[2020-07-17] MEDS: D5 1/2 NS w/20 mEq KCL 1,000 ML IV SCH ×4 (04:40→20:22)
[2020-07-17 05:14] LABS: #Lymphocytes 0.7 thou/uL (1.20-3.40); #Monocytes 0.7 thou/uL (0.11-0.59); #Neutrophils 7.5 thou/uL (1.40-6.50); %Basophils 0.3 % (0.0-1.0); %Eosinophils 0.2 % (0.0-10.0); %Lymphocytes 7.5 % (21.0-51.0); %Monocytes 7.7 % (0.0-10.0); %Neutrophils 84.2 % (42.0-75.0); Hemoglobin 12.2 g/dL (12.0-16.0); Mean Corpuscular Hemoglobin 33.1 pg (27.0-31.0); Mean Corpuscular Volume 97.2 fL (78.0-98.0); Platelet Count 232 thou/uL (130-400); RBC Distribution Width 11.7 % (11.5-14.5); Red Blood Cell (RBC) Count 3.69 mill/uL (4.20-5.40); White Blood Cell (WBC) Count 8.9 thou/uL (4.8-10.8)
[2020-07-17 05:29] LABS: Anion Gap 12 mmol/L (10-20); BUN (Urea Nitrogen) 9 mg/dL (9.8-20.1); Calc. Creatinine Clearance 61 mL/min (70-130); Calcium 8.9 mg/dL (7.8-10.44); Carbon Dioxide 22 mmol/L (23-31); Chloride 108 mmol/L (98-107); Estimated GFR-MDRD 67; Glucose 170 mg/dL (83-110); Potassium 4.7 mmol/L (3.5-5.1); Sodium 137 mmol/L (136-145)
--- NOTE | 2020-07-17 06:55 | PDOC.GSPN ---
Surgery Progress Note: Subj - Subjective Patient reports: pain well controlled, tolerating liquids well, no bowel movemen t, no flatus Narrative: Ms. Farmer is an 80 year old female with a PMH of hemochromatosis, recurrent GI bleeds, essential tremor, and GERD who presented for laparoscopic small bowel resection. Patient stated she is feeling well and is in no acute pain. Patient stated she received morphine which brought her pain level from a 5 out of 10 to a 0 out of 10. Patient stated she is only experiencing mild soreness over her abdomen. She endorsed only being able to sleep for 3.5 hours. She has been able to urinate, but stated her stream is log loader and starts and stops frequently. She has been unable to pass flatulence or bowel movement. She endorsed worsening reflux and mild nausea, but stated she had not taken any medication to control her reflux last night. Patient sated she has been tolerating her liquid wells and has had no problems swallowing. Patient stated she has been using her incentive spirometry and has reached between 1000ml to 1500 ml. Overall, patient stated she is doing well. Surgery Progress Note: Obj - Vital signs Vital signs: Vital Signs - Most Recent Temp Pulse Resp BP Pulse Ox 98.0 F 93 16 137/73 94 L 07/17/20 04:14 07/17/20 04:14 07/17/20 04:14 07/17/20 04:14 07/17/20 04:14 - Physical Exam General: no distress, well nourished Cardiovascular: regular rate and rhythm Respiratory: clear to auscultation, normal respiratory effort Abdomen: positive bowel sounds, other (periumbilical ecchymosis) Psychiatric: oriented to time, oriented to person, oriented to place Wound: dressing clean,dry,intact Surgery Progress Note: Results - Labs Result Diagrams: 07/17/20 04:57 07/17/20 04:57 Lab results: Laboratory Results - last 12 hr 07/17/20 07/17/20 04:57 04:57 WBC 8.9 RBC 3.69 L Hgb 12.2 Hct 35.8 L MCV 97.2 MCH 33.1 H MCHC 34.0 RDW 11.7 Plt Count 232 MPV 8.0 Neutrophils % 84.2 H Lymphocytes % 7.5 L Monocytes % 7.7 Eosinophils % 0.2 Basophils % 0.3 Neutrophils # 7.5 H Lymphocytes # 0.7 L Monocytes # 0.7 H Eosinophils # 0.0 Basophils # 0.0 Sodium 137 Potassium 4.7 Chloride 108 H Carbon Dioxide 22 L Anion Gap 12 BUN 9 L Creatinine 0.82 Estimated GFR (MDRD) 67 Glucose 170 H Calcium 8.9 Surgery Progress Note: A/P - Plan Plan: Ms. 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 Patient is recovering well and is in no acute distress. 1. Continue to monitor patient's pain level and control pain with hydrocodone bitart/acetaminophen, ketorolac tromethamine, or morphine sulfate. 2. Continue patient on DVT prophylaxis with administration of enoxaparin, used of SCD, and encouraging patient to ambulate. 3. Continue patient on liquid diet as tolerated. 4. Control patient's mild nausea with ondansetron and promethazine HCL. 5. Control patient's worsening reflux with administration of famotidine.3 6. Encourage patient to utilize incentive spirometry frequently. 7. Monitor patient's glucose level and recheck to see if glucose level drops below 170. 8. Monitor patient's O2 saturation and consider oxygen supplementation with nasal cannula if presenting with respiratory difficulties. 9. Possible discharge later this evening.
[2020-07-17] MEDS ORDERED: HYDROcodone/Acetaminophen 7.5/325 mg Tablet PO PRN (07:54)
[2020-07-17] MEDS: Famotidine 20 MG TAB PO SCH ×2 (08:55→20:21)
[2020-07-17] MEDS ORDERED: Polyethylene Glycol 3350 17 GM Packet PO SCH (09:00)
[2020-07-17] MEDS ORDERED: diphenhydrAMINE 25 MG CAP PO PRN (19:44)
[2020-07-17] MEDS: Enoxaparin Sodium 40 MG/0.4 ML SYRINGE SC SCH (20:21)
[2020-07-18] MEDS: Ketorolac Tromethamine 30 MG/ML VIAL IVP SCH (06:28)
--- NOTE | 2020-07-18 06:29 | PDOC.GSPN ---
Surgery Progress Note: Subj - Subjective Narrative: Ms. Farmer is a 80 year old female POD 2 laparoscopic assisted small bowel resection and lysis of adhesions with a significant past medical history of small bowel tumor and recurrent gastrointestinal bleeds. She was just out of the shower when I went and saw her this morning. She was doing really well and had no complaints. She slept over 8 hours overnight, did not need any pain medications overnight, and ambulated around the floor this morning. Her pain level this morning was 2/10 and she described it more as a soreness. She was able to tolerate her full liquid diet well and denied any nausea or vomiting. She has had two bowel movements since yesterday. She has been doing her incentive spirometry every few hours. She was saline locked this morning because her IV was bothering her and she has good PO intake. She denied nausea, dizziness, shortness of breath, chest pain, and blood in her stools. She continues to have a slower urine stream than usual but reports that it is markedly improved since yesterday. Surgery Progress Note: Obj - Vital signs Vital signs: Vital Signs - Most Recent Temp Pulse Resp BP Pulse Ox 97 F L 76 18 154/78 H 96 07/18/20 05:25 07/18/20 05:25 07/18/20 05:25 07/18/20 05:25 07/18/20 05:25 - Physical Exam General: no distress Cardiovascular: regular rate and rhythm Respiratory: clear to auscultation, normal respiratory effort, breath sounds p resent Abdomen: soft, nondistended, positive bowel sounds, appropriately tender (to palpation around midline incision) Wound: healing well (appropriate bruising around the incisions without any drainage from either of the incisions) Surgery Progress Note: Results - Labs Result Diagrams: 07/17/20 04:57 07/17/20 04:57 Surgery Progress Note: A/P - Plan Plan: Patient is doing well overall. * Discontinue IV fluids, she has already been saline locked. * Discontinue scheduled IV toradol and replace with PO toradol PRN * Continue DVT prophylaxis * Advance to regular diet * Encourage ambulation and incentive spirometry. * Discharge later today
[2020-07-18] MEDS: Famotidine 20 MG TAB PO SCH (08:17)
[2020-07-18] MEDS ORDERED: Polyethylene Glycol 3350 17 GM Packet PO SCH (09:00)
[2020-07-18 10:55] VITALS: BP 148/80; TEMP 98.3
== END 2020-07-18 10:58 | disposition home or self-care (01) | DRG 331 ==
LOC: SURG A 07-16 06:03 → SURG B 07-16 11:48
PROVIDERS: ADMIT Specialist; ATTEND Specialist
PROC: 0DT84ZZ Resection of Small Intestine, Percutaneous Endoscopic Approach (ICD-10-PCS; principal; 2020-07-16)
DX: D3A.019 Benign carcinoid tumor of the small intestine, unspecified portion (principal); K21.9 Gastro-esophageal reflux disease without esophagitis; G25.0 Essential tremor; K66.0 Peritoneal adhesions (postprocedural) (postinfection); I10 Essential (primary) hypertension; Z90.710 Acquired absence of both cervix and uterus; Z88.8 Allergy status to other drugs, medicaments and biological substances; Z91.040 Latex allergy status; Z92.3 Personal history of irradiation
CPT/HCPCS: 36415; 71045; 80048; 85025; 88307; 88309; J0694; J1100; J1650; J1885; J2250; J2270; J2704; J3010; J3480; Q0163

== ENCOUNTER 2021-07-08 09:54 | Outpatient (CLI) | payer MEDICARE, BC ==
[2021-07-08 11:05] LABS: #Basophils 0.1 10x3/uL (0.0-0.2); #Eosinphils 0.1 10x3/uL (0.0-0.5); #Monocytes 0.5 10x3/uL (0.0-1.1); #Neutrophils 3.8 10x3/uL (1.5-8.4); %Basophils 0.9 % (0.0-2.0); %Eosinophils 1.2 % (0.0-6.0); %Lymphocytes 22.7 % (18.0-47.0); %Neutrophils 66.8 % (40.0-75.0); Hemoglobin 14.3 g/dL (12.0-15.5); Mean Corpuscular HGB CONC 33.9 g/dL (32.0-36.0); Mean Corpuscular Volume 94.4 fl (81.6-98.3); Platelet Count 269 10x3/uL (150-450); RBC Distribution Width 12.3 % (11.5-14.5); Red Blood Cell (RBC) Count 4.47 10x6/uL (3.90-5.03); White Blood Cell (WBC) Count 5.6 10x3/uL (3.5-10.5)
[2021-07-08 11:18] LABS: Anion Gap 13 mmol/L (10-20); BUN (Urea Nitrogen) 14 mg/dL (9.8-20.1); Calc. Creatinine Clearance 0 mL/min (70-130); Carbon Dioxide 28 mmol/L (23-31); Chloride 104 mmol/L (98-107); Potassium 4.1 mmol/L (3.5-5.1); Sodium 141 mmol/L (136-145)
[2021-07-08 11:19] LABS: Calcium 11.1 mg/dL (7.8-10.44); Glucose 86 mg/dL (83-110)
[2021-07-08 18:10] LABS: SARS-CoV-2 PCR by NAA Not Detected (NotDetected)
== END 2021-07-08 09:55 | disposition home or self-care (01) ==
LOC: LABBT 09:54
PROVIDERS: ATTEND Specialist
DX: Z01.818 Encounter for other preprocedural examination (principal); K43.9 Ventral hernia without obstruction or gangrene; Z90.49 Acquired absence of other specified parts of digestive tract; Z20.822 Contact with and (suspected) exposure to COVID-19
CPT/HCPCS: 71046; 80048; 85025; 93005; U0003; U0005; 93010

== ENCOUNTER 2021-07-11 10:02 | Day surgery (SDC) | payer MEDICARE, BC ==
[2021-07-10 08:51] VITALS: BMI 30.2
[2021-07-11] MEDS ORDERED: ceFAZolin 2 GM/DEX 5% 100 ML BAG ONE (10:49)
[2021-07-11] MEDS ORDERED: Acetaminophen 500 MG TAB ONE (10:49)
[2021-07-11] MEDS ORDERED: Ketorolac Tromethamine 30 MG/ML VIAL ONE (10:49)
[2021-07-11] MEDS ORDERED: Lidocaine 1% w/Epinephrine 1:100K 20 ML VIAL ONE (12:45)
[2021-07-11] MEDS ORDERED: Bupivacaine 0.25% HCL 30 ML VIAL ONE (12:45)
[2021-07-11] MEDS ORDERED: Fentanyl 100 MCG/2 ML VIAL ONE ×3 (12:47→15:20)
[2021-07-11] MEDS ORDERED: HYDROmorphone 2 MG/ML VIAL ONE (12:56)
[2021-07-11] MEDS ORDERED: PHENYLEPHRINE-NS 100 MCG/ML 10 ML SYRINGE ONE (13:08)
[2021-07-11] MEDS ORDERED: Lidocaine 1% PF 5 ML VIAL ONE (13:08)
[2021-07-11] MEDS ORDERED: Glycopyrrolate 0.2 MG/ML 5 ML SYRINGE ONE (13:08)
[2021-07-11] MEDS ORDERED: PROPOFOL 200 MG/20 ML VIAL ONE (13:08)
[2021-07-11] MEDS ORDERED: Dexamethasone 20 MG/5 ML VIAL ONE (13:08)
[2021-07-11] MEDS ORDERED: Rocuronium Bromide 10 MG/ML (10ML VIAL) ONE (13:08)
[2021-07-11] MEDS ORDERED: Ondansetron PF 4 MG/2 ML Vial ONE (13:08)
[2021-07-11] MEDS ORDERED: SUGAMMADEX SODIUM 200 MG/2 ML VIAL ONE (14:55)
[2021-07-11] MEDS ORDERED: hydrALAZINE 20 MG/ML VIAL ONE (15:05)
[2021-07-11] MEDS ORDERED: Ondansetron ODT 4 MG TAB ONE (19:42)
== END 2021-07-11 20:30 | disposition home or self-care (01) ==
LOC: SDC 10:02
PROVIDERS: ATTEND Specialist
PROC: 0WUF4JZ Supplement Abdominal Wall with Synthetic Substitute, Percutaneous Endoscopic Approach (ICD-10-PCS; principal; 2021-07-11)
DX: K43.2 Incisional hernia without obstruction or gangrene (principal); K66.0 Peritoneal adhesions (postprocedural) (postinfection); I10 Essential (primary) hypertension; M19.90 Unspecified osteoarthritis, unspecified site; M85.80 Other specified disorders of bone density and structure, unspecified site; K21.9 Gastro-esophageal reflux disease without esophagitis; Z85.3 Personal history of malignant neoplasm of breast; Z79.899 Other long term (current) drug therapy; Z88.8 Allergy status to other drugs, medicaments and biological substances; Z91.040 Latex allergy status; Z91.048 Other nonmedicinal substance allergy status; Z90.49 Acquired absence of other specified parts of digestive tract
CPT/HCPCS: J0360; J1100; J1170; J1885; J2405; J2704; J3010; Q0162; S0020